=== PATIENT | female | born 1975 ===

== ENCOUNTER 2017-09-01 08:57 | Outpatient (CLI) | payer OTHER ==
[~2017-09-01 08:57] MED LIST: IMURAN50 MG PO; NEURONTIN300 MG PO; ZANAFLEX2 M1 PO
== END 2017-09-01 09:10 | disposition home or self-care (01) ==
LOC: MRI 08:57
DX: M50.222 Other cervical disc displacement at C5-C6 level (principal); G36.8 Other specified acute disseminated demyelination
CPT/HCPCS: 72156; 72157; A9579 ×2; 72142; 72147

== ENCOUNTER 2020-08-08 07:06 | Outpatient (CLI) | payer OTHER | END 2020-08-08 07:18 | disposition home or self-care (01) | LOC: MRI 07:06 | PROVIDERS: ATTEND Internal Medicine | DX: G36.0 Neuromyelitis optica [Devic] (principal); H54.7 Unspecified visual loss; K46.9 Unspecified abdominal hernia without obstruction or gangrene | CPT/HCPCS: 72141; 72142; 72146; 72147; 72148; 72149 ==

== ENCOUNTER 2022-03-05 10:38 | Outpatient (CLI) | payer OTHER | END 2022-03-05 10:40 | disposition home or self-care (01) | LOC: LAB 10:38 | PROVIDERS: ATTEND Radiology Diagnostic Radiology | DX: G36.0 Neuromyelitis optica [Devic] (principal) ==

== ENCOUNTER 2022-03-06 07:20 | Outpatient (CLI) | payer OTHER | END 2022-03-06 07:30 | disposition home or self-care (01) | LOC: MRI 07:20 | PROVIDERS: ATTEND Psychiatry & Neurology Neurology | DX: G36.0 Neuromyelitis optica [Devic] (principal) | CPT/HCPCS: 70553; 72157; Q9965; 70552; 72147 ==